=== PATIENT | male | born 1980 | race Two or more races ===

== ENCOUNTER 2018-12-28 10:53 | Outpatient (CLI) | payer OTHER ==
[2018-12-28] MEDS ORDERED: None per pt (11:44)
[2018-12-28] MEDS ORDERED: MULT-717 PO (11:51)
== END 2018-12-28 23:59 | disposition home or self-care (01) ==
LOC: STAR 10:53
PROVIDERS: ATTEND Thoracic Surgery (Cardiothoracic Vascular Surgery)
DX: Z02.9 Encounter for administrative examinations, unspecified (principal)

== ENCOUNTER 2019-01-04 07:50 | Day surgery (SDC) | payer OTHER ==
[~2019-01-04] VITALS: Ht 180.3 cm; Wt 68.0 kg
[~2019-01-04 07:50] MED LIST: BUPIVACAINE/PF-EPI 0.5% 1:200K ONE; MULT-717 PO; None per pt
[2019-01-04] MEDS ORDERED: LACTATED RINGERS 1,000 ML IV SCH ×2 (07:59→10:19)
[2019-01-04 08:00] VITALS: BP 132/93
[2019-01-04] MEDS ORDERED: LIDOCAINE-MPF 1%, 2ML INFIL ONE (08:00)
[2019-01-04] MEDS ORDERED: KETAMINE 50 MG/ML, 10ML ONE (09:06)
[2019-01-04] MEDS ORDERED: DEXMEDETOMIDINE 200 MCG/2 ML ONE (09:06)
[2019-01-04] MEDS ORDERED: MIDAZOLAM 1 MG/ML, 2ML ONE (09:07)
[2019-01-04] MEDS ORDERED: SUGAMMADEX 200 MG/2 ML IVPush ONE (09:07)
[2019-01-04] MEDS ORDERED: FENTANYL PF 250 MCG/5ML ONE (09:08)
[2019-01-04] MEDS ORDERED: LIDOCAINE-MPF 2% ,5ML ONE (09:48)
[2019-01-04] MEDS ORDERED: ONDANSETRON 2MG/ML, 2ML ONE (09:48)
[2019-01-04] MEDS ORDERED: ROCURONIUM 10MG/ML,5ML ONE (09:48)
[2019-01-04] MEDS ORDERED: CEFAZOLIN 1,000 MG ONE (09:48)
[2019-01-04] MEDS ORDERED: DEXAMETHASONE 4 MG/ML, 1ML ONE (09:48)
[2019-01-04] MEDS ORDERED: PROPOFOL 10 MG/ML, 20ML ONE (09:48)
[2019-01-04] MEDS ORDERED: HALOPERIDOL 5 MG/ML IV PRN (10:00)
[2019-01-04] MEDS ORDERED: HYDROmorphone 2 MG/ML, 1ML IVPush PRN (10:00)
[2019-01-04] MEDS ORDERED: FENTANYL PF 100 MCG/2ML IV PRN (10:00)
[2019-01-04] MEDS ORDERED: ACETAMINOPHEN 325 MG TABLET PO PRN (10:00)
[2019-01-04] MEDS ORDERED: MEPERIDINE/PF 25MG/0.5ML IVPush PRN (10:00)
[2019-01-04] MEDS ORDERED: OXYcodone 5 MG/5 ML ORAL.SOL UDC PO PRN (10:00)
[2019-01-04] MEDS ORDERED: PROMETHAZINE 25 MG/ML, 1ML IV PRN (10:00)
[2019-01-04] MEDS ORDERED: HYDROcodone/APAP 5/325 TABLET PO PRN (10:30)
[2019-01-04] MEDS ORDERED: ONDANSETRON 2MG/ML, 2ML IVPush PRN (10:30)
[2019-01-04] MEDS ORDERED: morphine SULFATE 10 MG/ML, 1ML IVPush PRN (10:30)
[2019-01-04] MEDS ORDERED: FENTANYL PF 100 MCG/2ML ONE (10:37)
[2019-01-04] MEDS ORDERED: ACETAMINOPHEN 650 MG/20.3 ML UDC ONE (10:37)
[2019-01-04] MEDS ORDERED: OXYcodone 5 MG/5 ML ORAL.SOL UDC ONE (10:38)
== END 2019-01-04 13:45 | disposition home or self-care (01) ==
LOC: OUT 07:50 → UNDOADMOB 10:19 → ORIP 10:19 → OUT 13:45 → 3WST 01-05 18:00 → ORIP 01-05 18:00
PROVIDERS: ATTEND Thoracic Surgery (Cardiothoracic Vascular Surgery)
DX: K40.20 Bilateral inguinal hernia, without obstruction or gangrene, not specified as recurrent (principal); K42.0 Umbilical hernia with obstruction, without gangrene; F10.21 Alcohol dependence, in remission
CPT/HCPCS: 49587; 49650; C1727; C1781; J0690; J1100; J2250; J2405; J2704; J3010; J3490; J7120